=== PATIENT | female | born 1995 | race Caucasian/White ===

== ENCOUNTER 2019-11-22 16:52 | Outpatient (CLI) | payer BC, SELFPAY ==
--- NOTE | 2019-11-23 | XR_ITS ---
WS: [id number] ANKLE LEFT TECHNIQUE: 3 views of the left ankle CLINICAL INFORMATION: PT FELL DOWN STAIRS, LT ANKLE PAIN/INJURY COMPARISON: None. FINDINGS: Normal ankle mortise. Talar dome is normal. No visualized fractures. Normal medial and lateral malleo kirill. Moderate soft tissue edema. XR/XR ankle LT min 3V* [id number] IMPRESSION: Moderate soft tissue edema. No acute fractures.
--- NOTE | 2019-11-23 | XR_ITS ---
WS: [id number] FOOT LEFT TECHNIQUE: 3 views of the left foot CLINICAL INFORMATION: PT FELL DOWN STAIRS, LT FOOT PAIN/INJURY COMPARISON: None. FINDINGS: No evidence of acute fracture or dislocation. Normal tarsal metatarsal alignment. Normal calcaneus. N ormal visualized talar dome. No acute findings. XR/XR foot LT min 3V* [id number] IMPRESSION: Normal left foot.
== END 2019-11-22 16:53 | disposition home or self-care (01) ==
PROVIDERS: Family Provider Physician Assistant; Visit Provider Nurse Practitioner
DX: Z76.89 Persons encountering health services in other specified circumstances (principal)

== ENCOUNTER → 2021-01-14 13:15 | Outpatient (BNVA) | payer BC, SELFPAY | PROVIDERS: Family Provider Physician Assistant; Visit Provider Nurse Practitioner Women's Health | DX: N92.0 Excessive and frequent menstruation with regular cycle (principal); Z31.9 Encounter for procreative management, unspecified | CPT/HCPCS: 88175 ==

== ENCOUNTER → 2021-03-12 14:09 | Outpatient (BNVA) | payer BC, SELFPAY | PROVIDERS: Family Provider Physician Assistant; Visit Provider Obstetrics & Gynecology | DX: N97.0 Female infertility associated with anovulation (principal) | CPT/HCPCS: 83520; 84144; 84439; 84443; 84481 ==

== ENCOUNTER 2021-06-11 11:36 | Outpatient (CLI) | payer OTHER, SELFPAY ==
--- NOTE | 2021-06-11 11:42 | FL_ITS ---
WS: [id number] HYSTEROSALPINGOGRAM The cervical opening was cannulated by the bench assembly inspector. Then under fluoroscopic guidance, water-solu ble contrast was injected in a retrograde fashion. 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 FINDINGS: The uterus fills normally, with no evidence of contour abnormality, filling defect, septum, stricture , mass, or bicornuate configuration. The bilateral uterine tubes are normal and patent with normal ra pid spillage of contrast into the peritoneum. FLUOROSCOPY TIME: 0.2 minutes. FL/FL hysterosalpingography [id number] IMPRESSION: Normal hysterosalpingogram.
--- NOTE | 2021-06-11 12:30 | PM.ACPR ---
Procedure/Consent Procedure Narrative: Radiologic procedure Date of procedure: 06/11/2021 Date of dictation: 06/11/2021 Procedural diagnosis: Infertility Procedure done: Placement of hysterosalpingogram catheter Physician: Dr. Miko Stovall Anesthesia: None Indication: To assess patency of fallopian tubes Complications: None, patient tolerated the procedure well PROCEDURE: The procedure was explained to the patient and verbal consent provided. Sterile speculum was placed in the vagina and the cervix was prepped with Betadine. The cervix was grasped with a single-tooth tenaculum. Using Omnipaque dye, the HSG catheter was primed. The catheter was inserted into the cervix and the speculum was removed. Fluoroscopy was performed by the radiologist. Omnipaque dye was injected into the endometrial cavity with normal filling of the cavity. Bilateral tubes appeared normal caliber with immediate spill of dye bilaterally. The tenaculum and catheter were removed. Patient tolerated the procedure well. Please see separate radiologist report for final interpretation. Followup appointment: She is to followup at her next scheduled appointment
[2021-06-11] MEDS: iohexol 300 mg/mL 50 mL Btl VAGINAL (12:48)
== END 2021-06-11 11:37 | disposition home or self-care (01) ==
PROVIDERS: PCP Physician Assistant; Visit Provider Obstetrics & Gynecology
DX: N97.0 Female infertility associated with anovulation (principal)
CPT/HCPCS: 74740

== ENCOUNTER → 2021-07-25 11:34 | Outpatient (BNVA) | payer OTHER, SELFPAY | PROVIDERS: PCP Physician Assistant; Visit Provider Obstetrics & Gynecology | DX: N97.0 Female infertility associated with anovulation (principal) | CPT/HCPCS: 84144; 84443 ==

== ENCOUNTER → 2021-09-24 10:26 | Outpatient (BNVA) | payer OTHER, SELFPAY | PROVIDERS: PCP Physician Assistant; Visit Provider Nurse Practitioner Women's Health | DX: Z20.2 Contact with and (suspected) exposure to infections with a predominantly sexual mode of transmission (principal); A59.9 Trichomoniasis, unspecified | CPT/HCPCS: 87661 ==

== ENCOUNTER 2025-05-21 13:30 | Oncology outpatient (recurring) (ONCR) | payer OTHER, SELFPAY ==
[2025-05-21] MEDS: ferric derisomaltose 1,000 MG in sodium chloride 0.9% (100 ml) 100 ML 330 MG IV (13:30)
--- NOTE | 2025-05-21 14:05 | PC.NURSE ---
Patient has previously had severe reactions to iron infusions. Patient began to have beginning symptoms of a reaction. The Monoferric was stopped and normal saline was ran at 200 ml/hr where patient stated her reaction symptoms of pressure in her head subsided. After consulting with Dr. Wilcox, a 500ml bag of normal saline was ordered to help dilute the Monoferric in hopes iron could be received without discomfort or concern. Patient stated after titrating the normal saline to 250 ml/hr the symptoms had subsided. For future appointments: run a 500 ml bag of 0.9% sodium chloride at 250 ml/hr in conjunction with 1,000mg of Monoferric mixed in 100ml of 0.9% sodium chloride.
[2025-05-21 15:20] VITALS: BP 150/87; PULSE 83; RESP 17; TEMP 36.5; O2SAT 98
== END 2025-05-31 23:59 | disposition home or self-care (01) ==
PROVIDERS: PCP Physician Assistant; Visit Provider Internal Medicine Medical Oncology
DX: Z53.9 Procedure and treatment not carried out, unspecified reason; D50.9 Iron deficiency anemia, unspecified; Z79.899 Other long term (current) drug therapy
CPT/HCPCS: 96365; J1437; J7040

== ENCOUNTER 2025-07-09 10:03 | Oncology outpatient (recurring) (ONCR) | payer OTHER, SELFPAY ==
[2025-07-09 10:37] LABS: Hematocrit 40.7 % (36-47); Hemoglobin 12.60 g/dL (11.27-16.99); Mean Corpuscular HGB Conc 31.0 g/dL (30-55); Mean Corpuscular Hemoglobin 25.7 pg (27-33); Mean Corpuscular Volume 83.1 fl (85-98); Nucleated Red Blood Cells % 0 %; Platelet Count 240 10^3/cmm (157-399); Red Blood Count 4.90 10^6/uL (3.85-5.65); White Blood Count 5.59 10^3/uL (3.29-11.43)
[2025-07-09 10:50] LABS: Alanine Aminotransferase 32 U/L (0-33); Albumin Level 4.3 g/dL (3.5-5.2); Alkaline Phosphatase 108 U/L (35-105); Anion Gap 14.1 (5-19); Aspartate Amino Transferase 22 U/L (0-32); Blood Urea Nitrogen 14 mg/dL (6-20); Calcium 9.1 mg/dL (8.5-10.5); Carbon Dioxide 23 mmol/L (22-29); Chloride 104 mmol/L (98-107); Globulin 3.1 g/dL (1.3-4.6); Glucose 92 mg/dL (65-115); Osmolality Calculated 284 mOsm/kg (285-295); Potassium 4.1 mmol/L (3.5-5.1); Sodium 137 mmol/L (136-145); Total Protein 7.4 g/dL (6.6-8.7)
[2025-07-09 10:56] LABS: Slide Review Slide Review Perform
[2025-07-09 11:01] LABS: Ferritin 35 ng/mL (15-150); Iron 46 ug/dL (37-145); Total Iron Binding Capacity 331 mcg/dl; Unsaturated Iron Binding 285 ug/dL (112-347)
[2025-07-09 11:17] LABS: Vitamin B12 486 pg/mL (232-1245)
== END 2025-07-31 23:59 | disposition home or self-care (01) ==
PROVIDERS: PCP Physician Assistant; Visit Provider Internal Medicine Medical Oncology
DX: D50.9 Iron deficiency anemia, unspecified (principal)
CPT/HCPCS: 36415; 80053; 82607; 82728; 82746; 83540; 83550; 85025

== ENCOUNTER → 2025-08-15 14:18 | Outpatient (BNVA) | payer OTHER, SELFPAY | PROVIDERS: PCP Physician Assistant; Referring Provider Nurse Practitioner Family; Visit Provider Nurse Practitioner Women's Health | DX: N92.0 Excessive and frequent menstruation with regular cycle (principal) | CPT/HCPCS: 87624 ==

== ENCOUNTER → 2025-09-17 12:50 | Outpatient (BNVA) | payer OTHER, SELFPAY | PROVIDERS: PCP Physician Assistant; Visit Provider Nurse Practitioner Women's Health | DX: Z01.419 Encounter for gynecological examination (general) (routine) without abnormal findings (principal); N97.0 Female infertility associated with anovulation | CPT/HCPCS: 82306; 83036; 83520; 84146; 84402; 84403 ==

== ENCOUNTER → 2025-09-26 09:40 | Outpatient (BNVA) | payer OTHER, SELFPAY | PROVIDERS: PCP Physician Assistant; Visit Provider Nurse Practitioner Women's Health | DX: N97.0 Female infertility associated with anovulation (principal) | CPT/HCPCS: 84144 ==

== ENCOUNTER → 2025-10-22 13:34 | Outpatient (BNVA) | payer OTHER, SELFPAY | PROVIDERS: PCP Physician Assistant; Visit Provider Nurse Practitioner Women's Health | DX: N97.8 Female infertility of other origin (principal); N97.0 Female infertility associated with anovulation | CPT/HCPCS: 84144 ==

== ENCOUNTER 2025-10-29 08:15 | Oncology outpatient (recurring) (ONCR) | payer OTHER, SELFPAY ==
[2025-10-29 08:36] LABS: Hematocrit 40.6 % (36-47); Hemoglobin 12.40 g/dL (11.27-16.99); Mean Corpuscular HGB Conc 30.5 g/dL (30-55); Mean Corpuscular Hemoglobin 25.8 pg (27-33); Mean Corpuscular Volume 84.6 fl (85-98); Nucleated Red Blood Cells % 0 %; Platelet Count 303 10^3/cmm (157-399); Red Blood Count 4.80 10^6/uL (3.85-5.65); White Blood Count 6.47 10^3/uL (3.29-11.43)
[2025-10-29 09:00] LABS: Alanine Aminotransferase 30 U/L (0-33); Albumin Level 4.2 g/dL (3.5-5.2); Alkaline Phosphatase 123 U/L (35-105); Anion Gap 13.2 (5-19); Aspartate Amino Transferase 32 U/L (0-32); Blood Urea Nitrogen 13 mg/dL (6-20); Calcium 9.0 mg/dL (8.5-10.5); Carbon Dioxide 24 mmol/L (22-29); Chloride 103 mmol/L (98-107); Globulin 3.0 g/dL (1.3-4.6); Glucose 102 mg/dL (65-115); Osmolality Calculated 282 mOsm/kg (285-295); Potassium 4.2 mmol/L (3.5-5.1); Sodium 136 mmol/L (136-145); Total Protein 7.2 g/dL (6.6-8.7)
== END 2025-10-31 23:59 | disposition home or self-care (01) ==
PROVIDERS: PCP Physician Assistant; Visit Provider Internal Medicine Medical Oncology
DX: Z53.9 Procedure and treatment not carried out, unspecified reason; D50.9 Iron deficiency anemia, unspecified
CPT/HCPCS: 36415; 80053; 85025